=== PATIENT | male | born 1995 | race Caucasian/White ===

== ENCOUNTER 2018-06-07 15:44 | Observation (INO) ==
[2018-06-07] MEDS: MORPHINE SUL Oral CONC 10 MG/0.5 ML ORAL.SYG SL PRN ×2 (17:51→21:50)
[2018-06-07] MEDS: Ondansetron 4 MG/2 ML VIAL IVP PRN (17:52)
[2018-06-07] MEDS: 0.9 % Sodium Chloride 1,000 ML IVC SCH (17:53)
[2018-06-07] MEDS: *HR* Heparin 5,000 UNIT/ML VIAL SQ SCH (18:00)
[2018-06-07] MEDS ORDERED: *HR* LORazepam 2 MG/ML VIAL IVP PRN ×2 (18:09)
--- NOTE | 2018-06-07 18:36 | General Surg History&Physical ---
Date of Encounter: 06/07/18 Time of Encounter: 18:33 Assessment and Plan (1) Acute cholecystitis Current Visit: Yes Status: Acute The assessment and plan as outlined above was discussed with the patient and/or family members who expressed understanding and agreement. All questions were answered. I explained to the patient that he does have evidence of acute cholecystitis without any common bile duct dilation or signs of hyperbilirubinemia. My plan will be to start IV fluids and IV antibiotics and plan for laparoscopic cholecystectomy within the next 24 hours. Risks and benefits discussed with the patient and he agrees with the above plan. History of Present Illness Chief complaint: Right upper abdominal pain HPI: Mr. Hussein is a 23 year old male with no significant past medical history states that he has been having right upper quadrant abdominal pain for about one week. He describes the pain is intermittent in nature and extending from the epigastrium to right upper quadrant. The pain is described as a sharp stabbing pain and he says that the pain mainly occur between 5:56 AM in the morning. He denies any true association of pain with eating but he does admit to nausea and vomiting symptoms. He denies any diarrhea or constipation and was first evaluated at [facility] where laboratory studies were ordered and were normal but a gallbladder ultrasound suggested acute cholecystitis with no gallbladder wall thickening and a positive Aguiar sign. Past Med Surg Social Fam HX - Past Medical History Medical history: non-contributory Psychiatric history: no psych history - Past Surgical History Surgical History: no surgical history - Social History Smoking Status: Current every day smoker Packs per day: 1 Smokeless Tobacco Status: No Alcohol use: occasionally, heavy (1-2 cases a week) Drug use: none Medications and Allergies Amoxicillin 875 mg PO BID #20 tablet 06/30/15 [Rx] GuaiFENesin/Codeine [Robitussin w/Codeine] 5 ml PO Q6HR PRN #120 ml 06/30/15 [Rx] Magic Mouthwash 5 ml PO TID PRN #120 ml 06/30/15 [Rx] Allergy/AdvReac Type Severity Reaction Status Date / Time No Known Allergies Allergy Verified 10/22/14 15:35 Review of Systems All systems PM: reviewed and no additional remarkable complaints except as stated All systems PM: The remainder of the systems were reviewed and are negative General Surgery Exam Initial Vital Signs Temp Pulse Resp BP Pulse Ox 98.4 F 75 16 137/83 95 06/07/18 17:12 06/07/18 17:12 06/07/18 17:12 06/07/18 17:12 06/07/18 17:12 - Eyes PERRL, normal ocular movement - Respiratory normal expansion, normal respiratory effort, clear to auscultation - Cardiovascular Cardiovascular exam: Present: RRR, no murmurs/rubs/gallops - Abdomen Abdomen general surgery: Present: bowel sounds present, soft (Obese, positive pain to palpation in the right upper quadrant and epigastrium. No masses palpat ed) - Integumentary Integumentary general surgery: Present: warm and dry - Neurologic Present: CN 2-12 grossly intact - Musculoskeletal Present: other (No clubbing or cyanosis) - Psychiatric Psychiatric general surgery: Present: A&Ox3, appropriate, oriented to person, o riented to place, oriented to time Results - Labs 06/08/18 03:00 06/08/18 03:00 All other labs normal. - Imaging US - abdomen: report reviewed
[2018-06-07] MEDS: *HR* LORazepam 2 MG/ML VIAL IVP PRN (21:23)
[2018-06-07] MEDS ORDERED: Nicotine 21 MG PATCH.TD24 TD SCH ×2 (21:45)
[2018-06-07] MEDS: Piperacillin/Tazobactam 3.375 GM in 0.9 % Sodium Chloride Mini Bag 100 ML IVPB SCH (23:48)
[2018-06-08] MEDS: Ondansetron 4 MG/2 ML VIAL IVP PRN ×2 (03:25→09:00)
[2018-06-08] MEDS: *HR* LORazepam 2 MG/ML VIAL IVP PRN (03:25)
[2018-06-08 04:32] LABS: Basophils # 0.1 K/mcL (0.0-0.2); Eosinophils # 0.4 K/mcL (0.0-0.6); Eosinophils % 6.5 %; Hematocrit 43.8 % (37.5-50.1); Hemoglobin 14.7 g/dL (12.9-16.9); Immature Granulocytes % 0.3 % (0-4); Lymphocytes # 1.7 K/mcL (0.6-4.6); Lymphocytes % 28.4 %; Mean Corpuscular HGB Conc 33.6 g/dL (31.6-35.5); Mean Corpuscular Hemoglobin 31.4 pg (28.0-33.3); Mean Corpuscular Volume 93.6 fL (83.0-100.0); Mean Platelet Volume 11.8 fL (9.4-12.4); Monocytes # 0.4 K/mcL (0.0-1.3); Monocytes % 6.3 %; Neutrophils # 3.4 K/mcL (1.6-8.9); Platelet Count 142 K/mcL (140-400); Red Blood Count 4.68 M/mcL (4.19-5.50); Red Cell Distribution Width 13.1 % (11.5-14.5); Segmented Neutrophils % 57.5 %
[2018-06-08 04:39] LABS: Prothrombin Time 11.1 Seconds (9.4-12.1)
[2018-06-08] MEDS: *HR* Heparin 5,000 UNIT/ML VIAL SQ SCH (05:05)
[2018-06-08] MEDS: 0.9 % Sodium Chloride 1,000 ML IVC SCH (05:05)
[2018-06-08 05:08] LABS: Alanine Aminotransferase 49 Units/L (7-52); Albumin 4.2 g/dL (3.5-5.7); Alkaline Phosphatase 53 Units/L (34-104); Aspartate Amino Transferase 73 Units/L (13-39); BUN/Creatinine Ratio 10 (6-26); Bilirubin,Direct 0.2 mg/dL (0.0-0.2); Bilirubin,Indirect 1.3 mg/dL (0.0-1.2); Bilirubin,Total 1.5 mg/dL (0.3-1.0); Blood Urea Nitrogen 11 mg/dL (6-20); Calcium 9.1 mg/dL (8.6-10.3); Carbon Dioxide 26 mEq/L (23-29); Chloride 104 mEq/L (98-107); Globulin 2.1 g/dL (2.4-3.5); Glucose 84 mg/dL (70-105); Osmolality,Calculated 285 (280-300); Potassium 3.8 mEq/L (3.5-5.1); Sodium 138 mEq/L (136-145); Total Protein 6.3 g/dL (6.4-8.9); eGFR For Non-African Americans > 60 (> 60)
[2018-06-08] MEDS: Piperacillin/Tazobactam 3.375 GM in 0.9 % Sodium Chloride Mini Bag 100 ML IVPB SCH (08:16)
--- NOTE | 2018-06-08 08:51 | Discharge Summary ---
Date of Encounter: 06/08/18 Time of Encounter: 15:56 - Discharge Diagnosis (1) Acute cholecystitis Priority: Primary Status: Resolved General Surgery Exam Initial Vital Signs Temp Pulse Resp BP Pulse Ox 98.4 F 75 16 137/83 95 06/07/18 17:12 06/07/18 17:12 06/07/18 17:12 06/07/18 17:12 06/07/18 17:12 - Hospital Course Hospital course: Mr. Hussein is a 23 year old male who presented on 06/07/2018 for right upper quadrant pain. His assessment and imaging were consistent with acute cholecystitis. He was taken to the operating room on 06/08/2017 where he underwent an uncomplicated laparoscopic cholecystectomy by Dr. Greenberg. He is emulating avoiding without difficulty, tolerating a diet without nausea or vomiting, vital signs are stable, and he is afebrile. We will begin discharge planning to home with a follow-up in the office in approximately 2 weeks. - Time Spent with Patient Total time spent providing and/or coordinating discharge services: - Discharge Medications Prescriptions: New OxyCODONE/APAP 5/325 [Percocet 5/325 MG] 1 each PO Q6HR PRN 7 Days #28 tablet PRN Reason: Pain Docusate Sodium [Colace] 100 mg PO BID PRN #30 capsule PRN Reason: Contstipation Ibuprofen 800 mg PO Q8H PRN #30 tablet PRN Reason: Postsurgical pain Home Medications: Docusate Sodium [Colace] 100 mg PO BID PRN #30 capsule 06/08/18 [Rx] Ibuprofen 800 mg PO Q8H PRN #30 tablet 06/08/18 [Rx] OxyCODONE/APAP 5/325 [Percocet 5/325 MG] 1 each PO Q6HR PRN 7 Days #28 tablet 06/08/18 [Rx] Allergies/Adverse Reactions: Allergy/AdvReac Type Severity Reaction Status Date / Time No Known Allergies Allergy Verified 06/08/18 12:38 Date of admission: 06/07/18 16:59 Primary care physician: PCP NONE Discharging clinician: Jaden Whitmore) Anticipated date of discharge: 06/08/18 Labs on day of discharge: Labs from last 24 hours 06/08/18 06/08/18 06/08/18 03:00 03:00 03:00 WBC 6.0 RBC 4.68 Hgb 14.7 Hct 43.8 MCV 93.6 MCH 31.4 MCHC 33.6 RDW 13.1 Plt Count 142 MPV 11.8 Immature Gran % 0.3 Seg Neutrophils % 57.5 Lymphocytes % 28.4 Monocytes % 6.3 Eosinophils % 6.5 Basophils % 1.0 Neutrophils # 3.4 Lymphocytes # 1.7 Monocytes # 0.4 Eosinophils # 0.4 Basophils # 0.1 PT 11.1 INR 1.0 Sodium 138 Potassium 3.8 Chloride 104 Carbon Dioxide 26 BUN 11 Creatinine 1.08 Est GFR ( Amer) > 60 Est GFR (Non-Af Amer) > 60 BUN/Creatinine Ratio 10 Glucose 84 POC Glucose Calculated Osmolality 285 Calcium 9.1 Total Bilirubin 1.5 H Direct Bilirubin 0.2 Indirect Bilirubin 1.3 H AST 73 H ALT 49 Alkaline Phosphatase 53 Serum Total Protein 6.3 L Albumin 4.2 Globulin 2.1 L Albumin/Globulin Ratio 2.0 06/07/18 17:15 WBC RBC Hgb Hct MCV MCH MCHC RDW Plt Count MPV Immature Gran % Seg Neutrophils % Lymphocytes % Monocytes % Eosinophils % Basophils % Neutrophils # Lymphocytes # Monocytes # Eosinophils # Basophils # PT INR Sodium Potassium Chloride Carbon Dioxide BUN Creatinine Est GFR ( Amer) Est GFR (Non-Af Amer) BUN/Creatinine Ratio Glucose POC Glucose 97 Calculated Osmolality Calcium Total Bilirubin Direct Bilirubin Indirect Bilirubin AST ALT Alkaline Phosphatase Serum Total Protein Albumin Globulin Albumin/Globulin Ratio - Patient Status Disposition: Home, Self-Care Condition: Good Functional capacity at discharge: independent ambulation Overall status at discharge: patient is progressing back to baseline - Discharge Instructions Instructions: Laparoscopic Cholecystectomy (DC) Follow Up With: Chula Bennett MD [Non-Partnered Physician] - Aria Whitmore CNP [Advanced Practice Nurse] - 06/27/18 3:15 pm Additional Instructions: General Surgical Discharge Instructions 1. No pushing, pulling, or lifting greater than 15 lbs for 2-4 weeks (depending upon procedure). 2. You may shower beginning today, but no tub baths, soaking, or swimming for 2 weeks. 3. You may resume driving when you are off narcotics and are safe to react in a car. 4. Take ibuprofen every 8 hours for discomfort. If this does not relieve discomfort, you may take the as needed Percocet. Take narcotics as directed. Do not take more narcotics then directed and do not share your narcotics with any other person. Do not drink alcohol while on narcotics. 5. Take stool softeners (Colace) or a water based laxative (Miralax) while taking narcotics. You may hold for loose stools. 6. Report any fevers greater than 100.5F, increase abdominal discomfort, drainage that looks like pus, increased redness or pain at the surgical site, or any vomiting. 7. Report any pain in the calves, shortness of breath, or rapid heartbeat. 8. Follow-up in the office as directed. 9. If you were prescribed antibiotics, do not stop them without talking to your provider. - Diet and Activity Activity: increase activity as tolerated Diet: advance to your usual diet
[2018-06-08] MEDS ORDERED: Pantoprazole 40 MG VIAL IVP SCH (09:00)
[2018-06-08] MEDS: MORPHINE SUL Oral CONC 10 MG/0.5 ML ORAL.SYG SL PRN (09:01)
[2018-06-08] MEDS ORDERED: *HR* FentaNYL (PF) 100 MCG/2 ML VIAL ONE (10:42)
[2018-06-08] MEDS ORDERED: *HR* Midazolam HCl 2 MG/2 ML VIAL ONE (10:43)
--- NOTE | 2018-06-08 11:06 | Anesthesia Evaluation PreOp ---
Date of Encounter: 06/08/18 Time of Encounter: 11:04 - Past History Planned Operation: Laparoscopic Cholecystectomy Cardiac History: Denies any Significant Hx Pulmonary History: Smoker (9 years), Snore TENONER OPERATOR History: Denies Any Significant HX Other Medical History: GERD, Other (obesity BMI=40.6) Anesthesia History: Past Anesthesia (no prior GA) Alcohol Use: occasionally, heavy (1-2 cases a week) Drug use: none Medications and Allergies Amoxicillin 875 mg PO BID #20 tablet 06/30/15 [Rx] GuaiFENesin/Codeine [Robitussin w/Codeine] 5 ml PO Q6HR PRN #120 ml 06/30/15 [Rx] Magic Mouthwash 5 ml PO TID PRN #120 ml 06/30/15 [Rx] Allergy/AdvReac Type Severity Reaction Status Date / Time No Known Allergies Allergy Verified 10/22/14 15:35 - Meds/Allergy Pre-op Review Medications Reviewed: Yes Allergies Reviewed: Yes Beta Blockers on Current Med List: No Anesthesia Results - Labs 06/08/18 03:00 06/08/18 03:00 Anesthesia Exam Vital Signs/O2 Sat/Glucose, Most Recent Temp Pulse Resp BP Pulse Ox 98.5 F 82 18 114/75 97 06/08/18 10:43 06/08/18 10:43 06/08/18 10:43 06/08/18 10:43 06/08/18 10:43 Blood Glucose* 97 Height: 6'1''/1.85m Weight: 307 lbs/139.7 kg NPO (# of Hours): 8 Pain Scale: 0 Pain Scale Used: Numeric (1 - 10) - HEENT Pupil (Motor): EOMI Mallampati: III Teeth: Normal Oral Opening: Greater than 3 - TENONER OPERATOR LOC: Oriented TENONER OPERATOR Motor: Normal RUE, Normal LUE, Normal RLE, Normal LLE, Normal Face TENONER OPERATOR Sensory: Normal: RUE, LUE, RLE, LLE, Face - Cardiac Rhythm: Regular Murmur: None - Pulmonary Breath Sounds: bilateral Clear Respiratory Effort: Symmetrical Anesthesia Assess/Plan ASA Score: 3 Level of consciousness: Cooperative, Oriented, Tranquil Anesthetic Plan: General Monitoring Plan: Standard Monitors Recovery Plan: PACU
[2018-06-08] MEDS ORDERED: *HR* HYDROmorphone (PF) 1 MG/ML SYRINGE IVP PRN (11:12)
[2018-06-08] MEDS ORDERED: *HR* OxyCODONE Immed Rel 5 MG TABLET PO PRN (11:12)
[2018-06-08] MEDS ORDERED: Bupivacaine/EPI 1:200k 0.5%PF 30 ML VIAL ONE (11:18)
[2018-06-08] MEDS ORDERED: *HR* Rocuronium Bromide 50 MG/5 ML VIAL ONE (11:58)
[2018-06-08] MEDS ORDERED: Lidocaine -MPF 4% 5 ML AMPUL ONE (11:58)
[2018-06-08] MEDS ORDERED: *HR* HYDROMORPHONE 2 MG/ML VIAL ONE (12:24)
--- NOTE | 2018-06-08 12:32 | Operative Note ---
Date of procedure: 06/08/18 Pre-op diagnosis: Acute cholecystitis Post-op diagnosis: same Procedure: Laparoscopic cholecystectomy Anesthesia: ROXANNEA Surgeon: Jaden Greenberg Was there an assistant womens volleyball coach present: No Estimated blood loss (cc): 8 Specimen: Gallbladder and contents Condition: stable Disposition: PACU Procedure in Detail: Date of surgery: 06/08/18 After properly identifying the patient, the patient was brought to the operating room and placed in the supine position. After proper IV sedation was achieved followed by general endotracheal intubation, the patient's abdomen was prepped and draped in normal sterile fashion. A timeout was performed noting the patient's name and type of procedure to be performed. Half percent Marcaine epinephrine was used to infiltrate the epidermal, dermal, and subcutaneous tissue just above the umbilicus. An 11 blade scalpel was then used to make an incision in this area down to the rectus fascia which was also incised. Once the abdomen was entered a 12 mm port was placed through the incision and the abdomen was insufflated with carbon dioxide. A laparoscopic camera was placed through the port which showed no injury to the intra-abdominal organs upon entry. A subxiphoid 5 mm port and a right subcostal margin 5 mm port were then placed under direct camera visualization after both of these areas were first infiltrated with half percent Marcaine solution. The patient was placed in a reverse Trendelenburg position and the gallbladder was noted to be distended and erythematous consistent with acute cholecystitis. A laparoscopic needle was used to decompress the gallbladder by removing approximately 40 mL of bilious fluid. This allowed for grasping of the dome of the gallbladder and retraction superiorly. The omental adhesions to the dome were dissected with Bovie cauterization and blunt dissection which allow for visualization of the cystic duct and cystic artery. The cystic duct and cystic artery were then isolated with the [place] dissector, clipped with laparoscopic clips, and incised with laparoscopic scissors. There were some enlarged lymphatic vessels which were also clipped with laparoscopic clips and incised laparoscopic scissors. The gallbladder was then carefully dissected off the gallbladder fossa with Bovie cauterization while Bovie cauterization was used to maintain hemostasis. Once the gallbladder was detached it was removed from the abdomen via an Endobag. Reinspection of the right upper quadrant demonstrated maintenance of hemostasis and all ports were then removed from the abdomen after the abdomen was desufflated. The rectus fascia for the supraumbilical incision was reapproximated with a [id number] 0 Vicryl suture. The subcutaneous tissue was reapproximated with interrupted 3-0 Vicryl sutures and the epidermal and dermal layers for the remaining incisions were closed with 4-0 Monocryl sutures. Needle, sponge, and instrument counts were correct 2 and the incisions were covered with Steri- Strips and Band-Aids. The patient was aroused from IV sedation, extubated in the operating room without complication, and transported to the recovery room in stable condition.
[2018-06-08] MEDS ORDERED: SUGAMMADEX SODIUM 500 MG/5 ML VIAL IV ONE (12:51)
[2018-06-08] MEDS ORDERED: *HR* LORazepam 2 MG/ML VIAL IVP PRN ×3 (14:09)
[2018-06-08] MEDS ORDERED: 0.9 % Sodium Chloride 1,000 ML IVC SCH (14:09)
[2018-06-08] MEDS ORDERED: Ondansetron 4 MG/2 ML VIAL IVP PRN (14:09)
[2018-06-08] MEDS ORDERED: *HR* OxyCODONE/APAP 5/325 TABLET PO PRN (14:09)
[2018-06-08] MEDS ORDERED: MORPHINE SUL Oral CONC 10 MG/0.5 ML ORAL.SYG SL PRN (14:09)
[2018-06-08] MEDS ORDERED: Piperacillin/Tazobactam 3.375 GM in 0.9 % Sodium Chloride Mini Bag 100 ML IVPB SCH (16:00)
[2018-06-08 16:15] VITALS: BP 123/77
[2018-06-08] MEDS ORDERED: *HR* Heparin 5,000 UNIT/ML VIAL SQ SCH (18:00)
[2018-06-09] MEDS ORDERED: Pantoprazole 40 MG VIAL IVP SCH (09:00)
[2018-06-09] MEDS ORDERED: Nicotine 21 MG PATCH.TD24 TD SCH (09:00)
== END 2018-06-08 20:30 | disposition home or self-care (01) ==
LOC: 3BNU
PROVIDERS: ADMIT Surgery; ATTEND Surgery